=== PATIENT | female | born 1950 | race Caucasian/White ===

== ENCOUNTER → 2017-07-05 | Outpatient (CLI) | payer MEDICARE, OTHER ==
[~2017-07-05] MED LIST: ADVAIR 250-501 EACH INH; ADVAIR HFA 230M12 GM; ALBUTEROL2.5 MG/0.5 INH; ASPIR 8181 MG PO; B12INJ PO; CALCIUM 500 +1 EAC5 PO; DEPAKOTE 250MG250 M1 PO; ESTRADIOL 1 MG T1 M1 PO; PROAIR RESPICL90 MCG INH; SPIRIVA INH; UNICOMPLEX M TA1 TA1 PO; VITAMINC500 PO
== END ==
LOC: M.RAD 14:54
DX: N60.92 Unspecified benign mammary dysplasia of left breast (principal); R92.8 Other abnormal and inconclusive findings on diagnostic imaging of breast

== ENCOUNTER → 2018-07-13 | Outpatient (CLI) | payer MEDICARE, OTHER | LOC: M.RAD 13:51 | DX: Z12.31 Encounter for screening mammogram for malignant neoplasm of breast (principal) ==

== ENCOUNTER → 2018-07-31 | Outpatient (CLI) | payer MEDICARE, OTHER | LOC: M.RAD 13:41 | DX: M85.80 Other specified disorders of bone density and structure, unspecified site (principal); Z78.0 Asymptomatic menopausal state ==

== ENCOUNTER → 2019-08-08 | Outpatient (CLI) | payer MEDICARE, OTHER ==
[~2019-08-08] MED LIST changes: +ALLEGRA ALLERG180 MG PO; +DIFLUCAN100 MG PO; +FISH OIL 500 M1 EAC1 PO; +FOSAMAX 70 MG T70 MG PO; +INCRUSE ELLI62.5 MCG INH; +LIPITOR 20 MG T20 M1 PO; +OMEPRAZOLE40 MG PO; +ONDANSETRON HCL4 M2 PO; +PRINIVIL20 MG PO; +PRINIVIL40 MG PO; +PROAIR HFA8.5 GM INH; +SINGULAIR 10 MG10 M1 PO; +VITAMIN B-121000 MC2 SUBLING; +VITAMIN E PO
== END ==
LOC: M.NUC 08-06 07:30
DX: R68.81 Early satiety (principal); R11.2 Nausea with vomiting, unspecified

== ENCOUNTER → 2019-08-09 | Day surgery (SDC) | payer MEDICARE, OTHER ==
[2019-08-09 09:07] LABS: HEMATOCRIT 43.2 % (37.0-47.0); HEMOGLOBIN 14.9 gm/dL (12.0-15.0); MCH 30.6 pg (26.0-34.0); MCHC 34.4 g/dL (28.0-37.0); MPV 8.7 fl. (7.2-11.1); RBC 4.86 mil/uL (4.20-5.00); RDW-CV 14.4 % (10.5-14.5); WBC 9.9 thou/uL (4.0-11.0)
[2019-08-09 09:13] LABS: CALCIUM 9.5 mg/dL (8.5-10.1); CREATININE 0.6 mg/dL (0.6-1.3); POTASSIUM 3.7 mmol/L (3.5-5.1)
--- NOTE | 2019-08-09 09:18 | EKG ---
[place] [address] ELECTROCARDIOGRAM REPORT Name: DADAOLEGARIO Bailon Room: [facility]#: [id number] Admission: 08/09/19 Attend Phys: Naresh Guardado, Discharge: Date of : 46 Date of Service: 08/09/19901 Report #: [id number] THIS REPORT FOR: //name// [facility] Test Date: 2019-08-09 Test Time: 09:02:42 Pat Name: OLEGARIO GARLAND Department: Room: Gender: F Pipe Inspector: : [id number] Requested By: Naresh Guardado Order Number: [id number] Reading MD: Reuben Damian Measurements Intervals [place] Rate: 71 P: 73 [place]: 176 QRS: 81 QRSD: 83 T: 71 QT: 414 QTc: 450 Interpretive Statements Sinus rhythm Atrial premature complex Probable left atrial enlargement Borderline right axis deviation Probable left ventricular hypertrophy Electronically Signed On 08-09-2019 9:17:19 CDT by Reuben Damian [email or web address] <ELECTRONICALLY SIGNED> By: Reuben Damian MD, [facility] 08/09/19916 1 1 Reuben Damian MD, [facility] /EPI
[2019-08-09 11:45] LABS: ALBUMIN 3.3 g/dL (3.4-5.0); DIRECT BILIRUBIN 0.1 mg/dL (<0.1-0.3); TOTAL BILIRUBIN 0.3 mg/dL (<0.1-1.0); TOTAL PROTEIN 6.2 g/dL (6.4-8.2)
== END | disposition home or self-care (01) ==
LOC: M.SUR
PROVIDERS: Internal Medicine Gastroenterology
DX: R13.14 Dysphagia, pharyngoesophageal phase (principal); R07.89 Other chest pain; R68.81 Early satiety; R11.2 Nausea with vomiting, unspecified; I10 Essential (primary) hypertension; E78.5 Hyperlipidemia, unspecified; J44.9 Chronic obstructive pulmonary disease, unspecified; K21.9 Gastro-esophageal reflux disease without esophagitis; F32.9 Major depressive disorder, single episode, unspecified; F41.9 Anxiety disorder, unspecified; G40.909 Epilepsy, unspecified, not intractable, without status epilepticus; Z86.010 Personal history of colon polyps; Z98.890 Other specified postprocedural states; Z79.899 Other long term (current) drug therapy; Z85.820 Personal history of malignant melanoma of skin; Z90.710 Acquired absence of both cervix and uterus; Z90.49 Acquired absence of other specified parts of digestive tract; Z88.8 Allergy status to other drugs, medicaments and biological substances

== ENCOUNTER → 2019-10-03 | Outpatient (CLI) | payer MEDICARE, OTHER | LOC: M.RAD 10:29 | PROVIDERS: ATTEND Nurse Practitioner Family | DX: Z12.31 Encounter for screening mammogram for malignant neoplasm of breast (principal); Z78.0 Asymptomatic menopausal state ==

== ENCOUNTER → 2019-12-12 | Outpatient (CLI) | payer MEDICARE, OTHER | LOC: M.LAB 09:30 | PROVIDERS: ATTEND Internal Medicine Gastroenterology | DX: Z01.812 Encounter for preprocedural laboratory examination (principal); Z11.59 Encounter for screening for other viral diseases; K59.04 Chronic idiopathic constipation; Z86.010 Personal history of colon polyps ==

== ENCOUNTER → 2020-10-09 | Outpatient (CLI) | payer OTHER | LOC: M.RAD 12:38 | PROVIDERS: ATTEND Nurse Practitioner Family | DX: Z12.31 Encounter for screening mammogram for malignant neoplasm of breast (principal) ==

== ENCOUNTER 2020-10-31 11:48 | Emergency (ER) | payer OTHER ==
[~2020-10-31] VITALS: Ht 154.9 cm; Wt 63.5 kg
[2020-10-31] MEDS ORDERED: WELLBUTRIN SR150 MG PO (12:22)
[2020-10-31] MEDS ORDERED: PROPRANOLOL 4040 M1 PO (12:23)
[2020-10-31] MEDS ORDERED: LINZESS145 MCG PO (12:23)
[2020-10-31] MEDS ORDERED: ESTRACE1 MG PO (12:24)
[2020-10-31] MEDS ORDERED: MAG-OXIDE400 MG PO (12:24)
[2020-10-31 13:36] VITALS: BP 176/56
== END 2020-10-31 13:37 | disposition home or self-care (01) ==
LOC: M.ERS 11:48
DX: S62.397A Other fracture of fifth metacarpal bone, left hand, initial encounter for closed fracture (principal); Z90.49 Acquired absence of other specified parts of digestive tract; Z90.710 Acquired absence of both cervix and uterus; Z88.1 Allergy status to other antibiotic agents; Z88.8 Allergy status to other drugs, medicaments and biological substances; Z91.030 Bee allergy status; W10.8XXA Fall (on) (from) other stairs and steps, initial encounter; Y93.89 Activity, other specified; Y92.89 Other specified places as the place of occurrence of the external cause; Y99.8 Other external cause status